=== PATIENT | female | born 1950 | race Caucasian/White ===

== ENCOUNTER → 2017-04-15 | Outpatient (CLI) | payer OTHER ==
[~2017-04-15] MED LIST: ASPEC325 PO; CRDCD240 PO; GLIM2TAB2 PO; HYDR25TA4 PO; ISOS30TA3 PO; METO100T14 PO; PRAV20TA PO; SERT-234 PO
[2017-04-15 12:12] LABS: BASO % 0.6 %; BASO ABS # 0.03 K/uL (0-0.2); COMPLETE YES; HEMATOCRIT 45.8 % (37-47); IG% 0.2 %; LYMPH % 24.3 %; LYMPH ABS # 1.31 K/uL (1.2-3.4); MEAN CELL VOLUME 88.6 fL (80-100); MEAN CORPUSCULAR HEMOGLOBIN 30.6 pg (25-34); MEAN CORPUSCULAR HGB CONC 34.5 g/dl (32-36); MEAN PLATELET VOLUME 8.8 fL (7.4-10.4); MONO % 10.6 %; NEUT % 61.3 %; PLATELET COUNT 195 K/uL (130-400); RED BLOOD COUNT 5.17 M/uL (4.2-5.4)
[2017-04-15 12:24] LABS: ALT/SGPT 67 U/L (12-78); BLOOD UREA NITROGEN 16 mg/dl (7-18); BUN/CREATININE RATIO 20.1 (10-20); CARBON DIOXIDE 28 mmol/L (21-32); CHLORIDE 103 mmol/L (98-107); CHOLESTEROL 154 mg/dl (0-200); CREATININE 0.81 mg/dl (0.60-1.20); GLUCOSE 150 mg/dl (70-99); POTASSIUM 4.3 mmol/L (3.5-5.1); SODIUM 140 mmol/L (136-145); TRIGLYCERIDES 267 mg/dl (0-150); VERY LOW DENSITY LIPOPROT CALC 53 mg/dl
[2017-04-15 12:27] LABS: ALB/GLOB RATIO 1.6 (0.9-2); ALKALINE PHOSPHATASE 74 U/L (45-117); AST/SGOT 33 U/L (15-37); CHOLESTEROL/HDL RATIO 3.2; HDL CHOLESTEROL 48 mg/dl; LDL CHOLESTEROL CALCULATED 53 mg/dl
[2017-04-15 12:46] LABS: ESTIMATED AVERAGE GLUCOSE 148 mg/dl; HA1C FLAG Normal (Normal)
[2017-04-15 12:48] LABS: CALCIUM 9.8 mg/dl (8.5-10.1)
== END | disposition home or self-care (01) ==
LOC: C.LABBFT 09:16
PROVIDERS: ATTEND Physician Assistant Medical
DX: E11.9 Type 2 diabetes mellitus without complications (principal); E78.00 Pure hypercholesterolemia, unspecified

== ENCOUNTER → 2017-05-22 | Outpatient (CLI) | payer OTHER | END | disposition home or self-care (01) | LOC: C.PATHSPEC 13:29 | PROVIDERS: ATTEND Plastic Surgery | DX: B07.9 Viral wart, unspecified (principal) ==

== ENCOUNTER → 2017-10-27 | Outpatient (CLI) | payer OTHER ==
[2017-10-27 17:41] LABS: HEMATOCRIT 41.8 % (37-47); MEAN CELL VOLUME 92.1 fL (80-100); MEAN CORPUSCULAR HEMOGLOBIN 30.6 pg (25-34); MEAN CORPUSCULAR HGB CONC 33.3 g/dl (32-36); MEAN PLATELET VOLUME 9.5 fL (7.4-10.4); PLATELET COUNT 183 K/uL (130-400); RED BLOOD COUNT 4.54 M/uL (4.2-5.4); WHITE BLOOD COUNT 5.84 K/uL (4.8-10.8)
[2017-10-27 17:56] LABS: ALT/SGPT 41 U/L (12-78); AST/SGOT 25 U/L (15-37); BLOOD UREA NITROGEN 30 mg/dl (7-18); BUN/CREATININE RATIO 30.8 (10-20); CALCIUM 9.6 mg/dl (8.5-10.1); CARBON DIOXIDE 28 mmol/L (21-32); CHLORIDE 104 mmol/L (98-107); CREATININE 0.97 mg/dl (0.60-1.20); GLUCOSE 113 mg/dl (70-99); POTASSIUM 3.4 mmol/L (3.5-5.1); SODIUM 140 mmol/L (136-145)
[2017-10-27 18:07] LABS: ALB/GLOB RATIO 1.3 (0.9-2); ALKALINE PHOSPHATASE 56 U/L (45-117); CHOLESTEROL 110 mg/dl (0-200); CHOLESTEROL/HDL RATIO 2.2; HDL CHOLESTEROL 49 mg/dl; LDL CHOLESTEROL CALCULATED 33 mg/dl; TRIGLYCERIDES 142 mg/dl (0-150); VERY LOW DENSITY LIPOPROT CALC 28 mg/dl
[2017-10-27 18:10] LABS: RATIO 12.4 mcg/mg (0-30.0)
[2017-10-28 07:27] LABS: ESTIMATED AVERAGE GLUCOSE 117 mg/dl; HA1C FLAG Normal (Normal)
== END | disposition home or self-care (01) ==
LOC: C.LABBFT 13:18
PROVIDERS: ATTEND Internal Medicine
DX: E11.29 Type 2 diabetes mellitus with other diabetic kidney complication (principal); E78.00 Pure hypercholesterolemia, unspecified

== ENCOUNTER 2017-11-16 06:02 | Emergency (ER) | payer OTHER ==
[~2017-11-16] VITALS: Ht 162.6 cm; Wt 76.8 kg
[2017-11-16 06:07] VITALS: TEMP 36.3; Ht 162.6 cm; Wt 76.8 kg
--- NOTE | 2017-11-16 06:26 | EMERGENCY ROOM VISIT NOTE ---
History Report prepared by Robyn: Aliyah Smiley Under the Supervision of: Dr. Vanesa Joshua D.O. First contact with patient: 06:09 Chief Complaint: BACK PAIN Stated Complaint: BACK PAIN History of Present Illness The patient is a 67 year old female who presents to the Emergency Room with complaints of worsening right-sided back pain beginning yesterday at 1500. The patient states that she was sitting in a chair yesterday when she stood up and felt the pain. She rates the pain at a 10/10. The patient states that the pain also radiates to her right leg. She denies having incontinence, paresthesias, and fevers. The patient also denies any trauma. The patient states that she is prescribed tramadol and that that did not help her back pain this time. She reports a history of degenerative disc disease. States pain typically shoots into the left leg when she has had similar episodes previously. She does not regularly follow with a production control specialist. Source of History: patient Onset: yesterday at 1500 Position: back (right-sided) Symptom Intensity: rated at a 10/10 Timing: worsening Associated Symptoms: No fevers Review of Systems See HPI for pertinent positives & negatives. A total of 10 systems reviewed and were otherwise negative. Past Medical & Surgical Medical Problems: (1) Asthma (2) Bleeding (3) Bronchitis (4) Degenerative disc disease (5) Diabetes (6) Heart attack (7) Heart disease (8) Herniated cervical disc (9) Hypertension (10) Ovarian cyst (11) Stomach problems Surgical Problems: (1) Hx of cholecystectomy Family History Cancer Diabetes mellitus Gallbladder disease Heart disease Hypertension Social History Smoking Status: Former Smoker Alcohol Use: occasionally Drug Use: none Marital Status: single Housing Status: lives alone Occupation Status: employed Current/Historical Medications Scheduled Aspirin (Aspirin *), 325 MG PO QAM Diltiazem Hcl Cd (Cardizem Cd *), 120 MG PO DAILY Glimepiride (Glimepiride), 1 TAB PO DAILY Hydrochlorothiazide (Hctz), 25 MG PO DAILY Isosorbide Mononitrate Ext Rel (Imdur Ext Rel), 30 MG PO QAM Lidocaine (Lidoderm Patch 5%), 1 PATCH TD DAILY Metoprolol Tartrate (Lopressor) (Lopressor), 100 MG PO BID Pravastatin (Pravachol ), 20 MG PO DAILY Sertraline (Zoloft), 100 MG PO DAILY Scheduled PRN Diazepam (Valium), 5 MG PO Q8 PRN for Pain Oxycodone/Acetaminophen 5MG/325MG (Percocet 5MG/325MG), 1-2 TABS PO Q4H PRN for Pain Allergies Coded Allergies: Codeine (Verified Allergy, Intermediate, GI ISSUES, 11/05/15) Physical Exam Vital Signs Date Time Temp Pulse Resp B/P (MAP) Pulse Ox O2 Delivery O2 Flow Rate FiO2 11/16/17 09:36 65 20 141/82 95 11/16/17 08:28 64 20 150/76 97 Room Air 11/16/17 07:03 62 20 147/61 99 Room Air 11/16/17 06:07 36.3 64 20 151/78 99 Room Air Physical Exam GENERAL: alert, uncomfortable appearing, laying left lateral Recumbent position , well nourished, no distress, non-toxic EYE EXAM: normal conjunctiva, PERRL and EOM's grossly intact LUNGS: Clear to auscultation. Normal chest wall mechanics HEART: no murmurs, S1 normal and S2 normal ABDOMEN: abdomen soft, non-tender, normo-active bowel sounds, no masses, no rebound or guarding. BACK: Back is symmetrical on inspection and there is no deformity, no midline tenderness, no CVA tenderness. No pain with palpation of lumbar spine, hips, or sacrum. SKIN: no rashes and no bruising UPPER EXTREMITIES: upper extremities are grossly normal. LOWER EXTREMITIES: No pitting edema. No pain with palpation. NEURO EXAM: Normal sensorium, cranial nerves II-XII grossly intact, normal speech, no gross weakness of arms, no gross weakness of legs. Medical Decision & Procedures ER Provider Diagnostic Interpretation: LUMBAR SPINE WITHOUT CLINICAL HISTORY: 67 years-old Female presenting with pain. TECHNIQUE: Multidetector CT of the lumbar spine was performed without the use of intravenous contrast. IV contrast: None. A dose lowering technique was used consistent with the principles of ALARA (as low as reasonably achievable). COMPARISON: Plain radiographs of the lumbar spine from 2010. CT DOSE (mGy.cm): The estimated cumulative dose is 1085.96 mGy.cm. FINDINGS: Finish Inspector topogram: Cholecystectomy clips noted. 7 mm of grade 1 anterolisthesis of L4 on L5, degenerative in etiology. No pars defect. Otherwise normal lumbar lordosis at the remaining levels. Vertebral bodies maintain normal height. Intervertebral disc height loss at L4-5 is mild with the remainder of intervertebral disc spaces preserved. No acute fracture or subluxation. Mild neural foraminal narrowing results from the anterolisthesis at L4-5. There is also resultant narrowing of the spinal canal. Mild facet arthropathy noted in the lower lumbar spine. Paraspinal soft tissues within normal limits apart from atherosclerosis. IMPRESSION: No acute osseous injury of the lumbar spine. Anterolisthesis of L4 on L5 with associated neural foraminal narrowing, degenerative in etiology. Electronically signed by: Jesus Billingsley M.D. 11/16/2017 7:58 AM Laboratory Results Test 11/16/17 08:00 Urine Color YELLOW Urine Appearance CLEAR (CLEAR) Urine pH 5.0 (4.5-7.5) Urine Specific Fenton 1.020 (1.000-1.030) Urine Protein NEG (NEG) Urine Glucose (UA) NEG (NEG) Urine Ketones 2+ (NEG) Urine Occult Blood NEG (NEG) Urine Nitrite NEG (NEG) Urine Bilirubin NEG (NEG) Urine Urobilinogen NEG (NEG) Urine Leukocyte Esterase NEG (NEG) Medications Administered Medications (Trade) Dose Ordered Sig/Mt Route Start Time Stop Time Status Last Admin Dose Admin Lidocaine (Lidoderm Patch 5%) 1 patch NOW STAT TD 11/16/17 06:28 11/16/17 06:32 DC 11/16/17 07:00 1 PATCH Diazepam (Valium Inj) 2.5 mg NOW STAT IV 11/16/17 06:28 11/16/17 06:32 DC 11/16/17 06:40 2.5 MG Ketorolac Tromethamine (Toradol Inj) 15 mg NOW STAT IV 11/16/17 06:28 11/16/17 06:32 DC 11/16/17 06:39 15 MG Oxycodone/ Acetaminophen (Percocet 5-325mg Tab) 1 tab NOW STAT PO 11/16/17 06:28 11/16/17 06:32 DC 11/16/17 07:00 1 TAB Fentanyl Citrate (Fentanyl Inj) 50 mcg NOW STAT IV 11/16/17 07:13 11/16/17 07:14 DC 11/16/17 07:26 50 MCG Cyclobenzaprine HCl (Flexeril Tab) 10 mg NOW STAT PO 11/16/17 08:09 11/16/17 08:10 DC 11/16/17 08:26 10 MG Oxycodone/ Acetaminophen (Percocet 5-325mg Tab) 1 tab NOW STAT PO 11/16/17 08:09 11/16/17 08:10 DC 11/16/17 08:26 1 TAB ED Course 0619: The patient was evaluated in room A4B. A complete history and physical exam was performed. 0628: Ordered Oxycodone/ Acetaminophen 1 tab PO, Toradol Inj 15 mg IV, Diazepam 2.5 mg IV, Lidocaine 1 patch TD. 0706: I reassessed the patient and she is still having some pain. 0810: Patient states pain had improved prior to CAT scan, now feels worse since returning from CAT scan and getting up to walk and give a urine specimen. Patient states she has had issues with her back since she was in her 20s. Her most recent imaging was performed in 2010 she has had prior MRI. Patient states she does not follow regularly with a back or production control specialist. Patient was concerned tonight due to the severity of pain and lack of trauma, although states she has had acute "twinges" in her back previously which has led to similar back pain only radiation to the left side in set of the right. 0902: Patient improved, pain still worse with movement and ambulation. No new or evolving symptoms to suggest or compression, discitis, epidural abscess or hematoma. Patient states episode similar to prior that she has had. Patient comfortable going home, her brother is driving her, she will follow up with her family doctor. Medical Decision Differential diagnosis: Etiologies such as musculoskeletal, disc herniation, fracture, aortic disease, metastatic disease, cord compression, discitis, infection, renal colic, gastrointestinal, acute exacerbation of chronic back pain, sciatica, cauda equina, as well as others were entertained. I do not suspect cauda equina, epidural abscess/hematoma, acute discitis, or acute nerve compression. Pt with long standing hx of back pain with intermittent acute exacerbations. Pt improved here and able to ambulate. No incontinence or saddle anesthesia. Discussed possible need for additional evaluation including specialist appt or MRI. Discussed with her sx to watch/ return for, use of meds and possible adr's, hydration, limited activity, she verbalized understanding and was agreeable with plan. Medication Reconcilliation Current Medication List: was personally reviewed by me Blood Pressure Screening Patient's blood pressure: Elevated blood pressure Blood pressure disposition: Elevated BP felt to be situational Impression Primary Impression: Low back pain Additional Impression: Lumbar radiculopathy, acute Scribe Attestation The scribe's documentation has been prepared under my direction and personally reviewed by me in its entirety. I confirm that the note above accurately reflects all work, treatment, procedures, and medical decision making performed by me. Departure Information Dispostion Home / Self-Care Prescriptions Lidocaine (Lidoderm Patch 5%) 1 Ea Tdsy 1 PATCH TD DAILY for Pain, #1 BOX Prov: Vanesa Joshua, DO 11/16/17 Diazepam (Valium) 5 Mg Tab 5 MG PO Q8 Y for Pain, #12 TAB Prov: Vanesa Joshua, DO 11/16/17 Oxycodone/Acetaminophen 5MG/325MG (PERCOCET 5MG/325MG) Tab 1-2 TABS PO Q4H Y for Pain, #15 TAB Prov: Vanesa Joshua, DO 11/16/17 Referrals Tomy Jaquez M.D. (PCP) Patient Instructions My [facility] Additional Instructions Please follow up with your family doctor as a precaution. You may take the medications as prescribed. Please do not take the muscle relaxer or stronger pain medication and drive his they may make you dizzy and drowsy. Please make sure you're drinking plenty of water. Please monitor for constipation as it is a frequent side effect of stronger pain medication. If you develop worsening pain, are unable to walk, develop numbness or tingling, are unable to control your bowel or bladder function, develop fevers, vomiting, or you've any other new concerns, please return the emergency room. If your pain is persistent or worsening, your family doctor may also refer you to a back or production control specialist for additional evaluation. Problem Qualifiers Primary Impression: Low back pain Chronicity: acute Back pain laterality: right Sciatica presence: with sciatica Sciatica laterality: sciatica of right side Qualified Codes: M54.41 - Lumbago with sciatica, right side
[2017-11-16] MEDS ORDERED: DIAZEPAM INJ 5 MG/ML 2 ML CARP IV STA (06:28)
[2017-11-16] MEDS ORDERED: LIDODERM (LIDOCAINE) PATCH 5% TD STA (06:28)
[2017-11-16] MEDS ORDERED: OXYCODONE/ACETAMINOPHEN 5-325 TAB PO STA ×2 (06:28→08:09)
[2017-11-16] MEDS ORDERED: KETOROLAC TROMETHAMINE 30 MG/ML VIAL IV STA (06:28)
[2017-11-16] MEDS ORDERED: FENTANYL CITRATE INJ 50 MCG/1 ML 2 ML VIAL IV STA (07:13)
--- NOTE | 2017-11-16 07:59 | DIAGNOSTIC IMAGING REPORT ---
LUMBAR SPINE WITHOUT CLINICAL HISTORY: 67 years-old Female presenting with pain. TECHNIQUE: Multidetector CT of the lumbar spine was performed without the use of intravenous contrast. IV contrast: None. A dose lowering technique was used consistent with the principles of ALARA (as low as reasonably achievable). COMPARISON: Plain radiographs of the lumbar spine from 2010. CT DOSE (mGy.cm): The estimated cumulative dose is 1085.96 mGy.cm. FINDINGS: Contact Agent topogram: Cholecystectomy clips noted. 7 mm of grade 1 anterolisthesis of L4 on L5, degenerative in etiology. No pars defect. Otherwise normal lumbar lordosis at the remaining levels. Vertebral bodies maintain normal height. Intervertebral disc height loss at L4-5 is mild with the remainder of intervertebral disc spaces preserved. No acute fracture or subluxation. Mild neural foraminal narrowing results from the anterolisthesis at L4-5. There is also resultant narrowing of the spinal canal. Mild facet arthropathy noted in the lower lumbar spine. Paraspinal soft tissues within normal limits apart from atherosclerosis. IMPRESSION: No acute osseous injury of the lumbar spine. Anterolisthesis of L4 on L5 with associated neural foraminal narrowing, degenerative in etiology. Electronically signed by: Jesus Billingsley M.D. 11/16/2017 7:58 AM Dictated Date/Time: 11/16/2017 7:55 AM
[2017-11-16] MEDS ORDERED: CYCLOBENZAPRINE HCL 10 MG TAB PO STA (08:09)
[2017-11-16] MEDS ORDERED: OXYC-57 PO (08:18)
[2017-11-16] MEDS ORDERED: NF656 TD (08:18)
[2017-11-16] MEDS ORDERED: DIAZ-165 PO (08:18)
[2017-11-16 08:43] LABS: URINE APPEARANCE CLEAR (CLEAR); URINE BILIRUBIN NEG (NEG); URINE COLOR YELLOW; URINE NITRITE NEG (NEG); UROBILINOGEN NEG (NEG)
[2017-11-16 08:50] LABS: MANUAL MICROSCOPIC REQUIRED? NO; REVIEW REQ? NO
[2017-11-16 09:36] VITALS: BP 141/82; PULSE 65; O2SAT 95
== END 2017-11-16 09:38 | disposition home or self-care (01) ==
LOC: EDBD 06:02 → C.EDA 06:03
DX: M54.5 Low back pain (principal); M54.16 Radiculopathy, lumbar region; E11.9 Type 2 diabetes mellitus without complications; I10 Essential (primary) hypertension; I51.9 Heart disease, unspecified; M50.20 Other cervical disc displacement, unspecified cervical region; N83.209 Unspecified ovarian cyst, unspecified side; Z87.19 Personal history of other diseases of the digestive system; Z87.891 Personal history of nicotine dependence; Z79.82 Long term (current) use of aspirin; Z79.899 Other long term (current) drug therapy; Z88.5 Allergy status to narcotic agent; Z80.9 Family history of malignant neoplasm, unspecified; Z83.3 Family history of diabetes mellitus; Z83.79 Family history of other diseases of the digestive system; Z82.49 Family history of ischemic heart disease and other diseases of the circulatory system

== ENCOUNTER 2018-02-18 05:33 | Inpatient (IN) | payer OTHER ==
[2018-01-29 11:34] VITALS: BMI 29.0
--- NOTE | 2018-01-29 12:20 | PAT Medication Instructions ---
Service Date Jan 29, 2018. Current Home Medication List Ascorbic Acid (Vitamin C), 500 MG PO QAM Aspirin (Aspirin), 325 MG PO QAM Clonidine Hcl (Catapres), 0.1 MG PO BID Diltiazem Hcl Coated Beads (Cartia Xt), 1 CAP PO QAM Gabapentin (Neurontin), 600 MG PO BID PRN for RN Glimepiride (Glimepiride), 1 TAB PO QAM Hydrochlorothiazide (Hctz), 25 MG PO QPM Isosorbide Mononitrate Ext Rel (Imdur Ext Rel), 30 MG PO QAM Losartan Potassium (Cozaar), 100 MG PO QPM Lutein (Lutein), 20 MG PO QAM Metoprolol Tartrate (Lopressor) (Lopressor), 100 MG PO BID Multiple Vitamins W/ Minerals (Centravites), 1 TAB PO BID Multivitamin (Multivitamin), 1 TAB PO QAM Nitroglycerin (Nitrostat), 0.4 MG UT PRN Pravastatin (Pravachol ), 40 MG PO QPM Sertraline (Zoloft), 100 MG PO QPM Medication Instructions For Your Scheduled Surgery -Contact your economics consultant for instructions for: Aspirin (Aspirin), 325 MG PO QAM -Continue as directed: Nitroglycerin (Nitrostat), 0.4 MG UT PRN - Hold the following medications the night before surgery: Hydrochlorothiazide (Hctz), 25 MG PO QPM Losartan Potassium (Cozaar), 100 MG PO QPM - Hold the following medications the morning of surgery: Ascorbic Acid (Vitamin C), 500 MG PO QAM Glimepiride (Glimepiride), 1 TAB PO QAM Lutein (Lutein), 20 MG PO QAM Multiple Vitamins W/ Minerals (Centravites), 1 TAB PO BID Multivitamin (Multivitamin), 1 TAB PO QAM - Take the following medications the morning of surgery with a sip of water: Clonidine Hcl (Catapres), 0.1 MG PO BID Diltiazem Hcl Coated Beads (Cartia Xt), 1 CAP PO QAM Gabapentin (Neurontin), 600 MG PO BID PRN for RN (if needed) Isosorbide Mononitrate Ext Rel (Imdur Ext Rel), 30 MG PO QAM Metoprolol Tartrate (Lopressor) (Lopressor), 100 MG PO BID - Take the following medications as scheduled the night before surgery: Clonidine Hcl (Catapres), 0.1 MG PO BID Gabapentin (Neurontin), 600 MG PO BID PRN for RN (if needed) Metoprolol Tartrate (Lopressor) (Lopressor), 100 MG PO BID Multiple Vitamins W/ Minerals (Centravites), 1 TAB PO BID Pravastatin (Pravachol ), 40 MG PO QPM Sertraline (Zoloft), 100 MG PO QPM If you have any questions please call us at [phone] or [phone] or [phone]
--- NOTE | 2018-01-29 13:06 | DIAGNOSTIC IMAGING REPORT ---
CHEST 2 VIEWS ROUTINE CLINICAL HISTORY: PAT preoperative evaluation COMPARISON STUDY: 11/05/2015 FINDINGS: The bones soft tissues and hemidiaphragms are normal. The cardiomediastinal silhouette is normal. The lungs are clear. The pulmonary vasculature is normal. IMPRESSION: Negative chest. The above report was generated using voice recognition software. It may contain grammatical, syntax or spelling errors. Electronically signed by: Eric Carr M.D. 01/29/2018 1:04 PM Dictated Date/Time: 01/29/2018 1:04 PM
[2018-01-29 13:24] LABS: BASO % 0.3 %; BASO ABS # 0.02 K/uL (0-0.2); EOS % 0.7 %; EOS ABS # 0.04 K/uL (0-0.5); HEMATOCRIT 44.2 % (37-47); HEMOGLOBIN 15.5 g/dL (12.0-16.0); IG# 0.01 K/uL (0.00-0.02); LYMPH % 18.6 %; LYMPH ABS # 1.09 K/uL (1.2-3.4); MEAN CELL VOLUME 90.8 fL (80-100); MEAN CORPUSCULAR HEMOGLOBIN 31.8 pg (25-34); MEAN CORPUSCULAR HGB CONC 35.1 g/dl (32-36); MEAN PLATELET VOLUME 8.8 fL (7.4-10.4); MONO % 8.4 %; MONO ABS # 0.49 K/uL (0.11-0.59); NEUT % 71.8 %; PLATELET COUNT 182 K/uL (130-400); RED CELL DISTRIBUTION WIDTH CV 12.9 % (11.5-14.5); RED CELL DISTRIBUTION WIDTH SD 42.7 fL (36.4-46.3); WHITE BLOOD COUNT 5.85 K/uL (4.8-10.8)
[2018-01-29 13:34] LABS: CREATININE 0.83 mg/dl (0.60-1.20); POTASSIUM 4.1 mmol/L (3.5-5.1)
[~2018-02-18] VITALS: Ht 162.6 cm; Wt 75.0 kg
[2018-02-18] VITALS (9 sets, daily range): BP systolic 102–145; BP diastolic 61–82; PULSE 55–68; TEMP 36.3–36.6; O2SAT 93–97; BMI 28.0
[~2018-02-18 05:33] MED LIST changes: +ASCO1CAP3 PO; -ASPEC325 PO; +ASPI325T45 PO; -CRDCD240 PO; +CTP/1 PO; +DILT240C48 PO; +GABA-113 PO; +LOSA1TAB38 PO; +LUTE20CA PO; +MULT-305 PO; +MULT-506 PO; +NTRGSL/4 UT
[2018-02-18] MEDS ORDERED: SCOPOLAMINE 1.5 MG TDSY TD SCH (06:00)
[2018-02-18] MEDS ORDERED: CEFAZOLIN 1000MG IV PUSH 7.5 ML IV SCH (06:00)
[2018-02-18] MEDS ORDERED: LACTATED RINGER'S 1000ML 1,000 ML IV SCH (06:00)
[2018-02-18] MEDS ORDERED: FENTANYL CITRATE INJ 50 MCG/1 ML 2 ML VIAL ONE ×2 (06:46→08:10)
[2018-02-18] MEDS ORDERED: MIDAZOLAM HCL 1 MG/ML 2ML VIAL ONE (06:46)
[2018-02-18] MEDS ORDERED: BUPIVACAINE/EPINEPHRINE 0.5% MPF 1:200,000 30 ML VIAL ONE (07:02)
[2018-02-18] MEDS ORDERED: CLINDAMYCIN PHOS 150 MG/ML 2 ML VIAL ONE ×2 (07:38)
--- NOTE | 2018-02-18 07:38 | History & Physical Bridge Note ---
H&P Re-Evaluation Bridge Note: I have examined the patient, reviewed the History & Physical and in the interval since the performance of the History & Physical I have noted the following changes of clinical significance: No changes noted
--- NOTE | 2018-02-18 07:39 | History and Physical ---
History & Physical Date Feb 18, 2018. Chief Complaint Back and leg pain History of Present Illness The patient is a 67 year old female with complaints of back and leg pain Past Medical/Surgical History Medical Problems: (1) Asthma (2) Bleeding (3) Bronchitis (4) Degenerative disc disease (5) Diabetes (6) Heart attack (7) Heart disease (8) Herniated cervical disc (9) Hypertension (10) Ovarian cyst (11) Stomach problems Surgical Problems: (1) Hx of cholecystectomy Allergies Coded Allergies: Codeine (Verified Allergy, Intermediate, GI ISSUES, 02/18/18) ANDRE Inhibitors (Verified Allergy, Unknown, COUGH, 02/18/18) Bacitracin (Verified Allergy, Unknown, EYE OINT ITCHY EYES, 02/18/18) Polymyxin B (Verified Allergy, Unknown, EYE OINT ITCHY EYES, 02/18/18) Home Medications Scheduled Ascorbic Acid (Vitamin C), 500 MG PO QAM Aspirin (Aspirin), 325 MG PO QAM Clonidine Hcl (Catapres), 0.1 MG PO BID Diltiazem Hcl Coated Beads (Cartia Xt), 1 CAP PO QAM Glimepiride (Glimepiride), 1 TAB PO QAM Hydrochlorothiazide (Hctz), 25 MG PO QPM Isosorbide Mononitrate Ext Rel (Imdur Ext Rel), 30 MG PO QAM Losartan Potassium (Cozaar), 100 MG PO QPM Lutein (Lutein), 20 MG PO QAM Metoprolol Tartrate (Lopressor) (Lopressor), 100 MG PO BID Multiple Vitamins W/ Minerals (Centravites), 1 TAB PO BID Multivitamin (Multivitamin), 1 TAB PO QAM Nitroglycerin (Nitrostat), 0.4 MG UT PRN Pravastatin (Pravachol ), 40 MG PO QPM Sertraline (Zoloft), 100 MG PO QPM Scheduled PRN Gabapentin (Neurontin), 600 MG PO BID PRN for RN Physical Examination Skin: warm/dry, no rash Eyes: normal inspection, EOMI, sclerae normal ENT: normal ENT inspection, pharynx normal Head: normocephalic, atraumatic Neck: supple, no adenopathy, trachea midline Respiratory/Chest: lungs clear, normal breath sounds, no respiratory distress Cardiovascular: regular rate, rhythm, no edema, no murmur Abdomen / GI: normal bowel sounds, non tender Back: normal inspection Extremities: normal inspection, normal range of motion Neurologic/Psych: no motor/sensory deficits, alert, normal reflexes, oriented x 3 Diagnosis Lumbar spinal stenosis Plan of Treatment L4-L5 decompression and fusion
[2018-02-18] MEDS: CHECK SCOPOLAMINE PATCH PLACEMENT SCH ×2 (08:00→15:37)
[2018-02-18] MEDS ORDERED: HYDROmorphone INJ 2 MG/ML SYR/VIAL ONE (08:10)
[2018-02-18] MEDS ORDERED: PROMETHAZINE HCL INJ 6.25 MG in SODIUM CHLORIDE 0.9% 50ML 50 ML IV PRN (08:30)
[2018-02-18] MEDS ORDERED: EpHEDrine SULFATE INJ 50 MG/ML AMP IV PRN (08:30)
[2018-02-18] MEDS ORDERED: ONDANSETRON INJ 2 MG/ML 2 ML VIAL IV PRN ×2 (08:30→09:30)
[2018-02-18] MEDS ORDERED: FENTANYL CITRATE INJ 50 MCG/1 ML 2 ML VIAL IV PRN (08:30)
[2018-02-18] MEDS ORDERED: ATROPINE SULFATE 0.1 MG/ML 5ML SYR IV PRN (08:30)
[2018-02-18] MEDS ORDERED: DEXAMETHASONE SOD INJ 4 MG/ML VIAL ONE (08:36)
[2018-02-18] MEDS ORDERED: PROPOFOL IV EMULSION 10 MG/ML 20 ML VIAL IV ONE (08:36)
[2018-02-18] MEDS ORDERED: RANITIDINE HCL 25 MG/ML INJ ONE (08:36)
[2018-02-18] MEDS ORDERED: EpHEDrine SULFATE 50MG/5ML SYR ONE (08:36)
[2018-02-18] MEDS ORDERED: ONDANSETRON INJ 2 MG/ML 2 ML VIAL ONE (08:36)
[2018-02-18] MEDS ORDERED: LIDOCAINE HCL 2% 2 ML VIAL (20MG/ML) ONE (08:36)
[2018-02-18] MEDS ORDERED: FLOSEAL HEMOSTATIC MATRIX 10ML TOP ONE (09:17)
--- NOTE | 2018-02-18 09:26 | [facility] Operative Report ---
Operative Report Operative Date Feb 18, 2018. Pre-Operative Diagnosis Lumbar spinal stenosis Post-Operative Diagnosis Same Procedure(s) Performed 1. Decompression L3-4 L4-5 #2 posterior spinal fusion L4-5. #3 placed posterior instrumentation L4-5. #4 interbody fusion L4-5. #5 placed a peek cage 11 x 22 mm at L4-5. #6 placement of locally harvested morselized autograft in the posterior lateral gutters. #7 placement of infuse collagen sponge breast graft the posterior gutters was doing up in the interbody space. Surgeon Dr. Arnie Ashley Weaving Machine Operator Surgeon(s) Mallory Enrique PA-C Estimated Blood Loss 100 cc Findings Severe spinal stenosis with spondylolisthesis Anesthesia Type General Description of Procedure Patient was met with preoperatively case discussed all questions addressed. After informed consent obtained patient was taken to the operative suite underwent intubation and placed in a prone position on the Samuel table on top of the lucent frame. All bony prominences were well-padded I suspected to ensure no external pressure placed upon the. This point the lumbar spine was prepped and draped in normal sterile fashion. Sharp dissection with the assistance of Bovie cautery was performed down to in exposing the lamina and transverse processes of L4-5 bilaterally from calcification complete laminectomy of L4 partial laminectomy of L3 was performed addressing severe lateral recess and foraminal stenosis. Pedicle screws were then placed in L4 and L5 bilaterally with the assistance of fluoroscopy an appropriate size rand placed. Through a transforaminal approach on the right a complete discectomy of L4-5 was performed endplates created to subcortical bleeding bone and a 11 x 22 mm peek cage filled with osteitic bone graft apposition. The rods then compressed and locked in final position bilaterally. The transverse processes of L4 and L5 burred to subcortical bleeding bone. Infuse collagen sponge mesh graft locally harvested morselized s Autograft was placed in the posterior lateral gutters.. 15 round KATHLEEN drain inserted. Incision was then closed with 1 Vicryl in the fascia 2-0 Vicryl subcutaneously 4-0 Monocryl for fashion closure Steri-Strips sterile dressings placed patient was getting to PACU stable condition. Please note Mallory Leyva was present throughout the entire procedure involved in patient positioning complex portions of the surgery and fashion closure. I attest to the content of the Intraoperative Record and any orders documented therein. Any exceptions are noted below.
[2018-02-18] MEDS ORDERED: SODIUM CHLORIDE 0.9% 1000ML 1,000 ML IV SCH (09:27)
[2018-02-18] MEDS ORDERED: hydrOXYzine HCL 25 MG TAB PO PRN (09:30)
[2018-02-18] MEDS ORDERED: LORAZEPAM INJ 0.5 MG in SYRINGE 0 ML IV PRN (09:30)
[2018-02-18] MEDS ORDERED: ALUMINUM/MAGNESIUM SUSP 30 ML UDC PO PRN (09:30)
[2018-02-18] MEDS ORDERED: ACETAMINOPHEN IV 100 ML IV PRN (09:30)
[2018-02-18] MEDS ORDERED: DO NOT ADMINISTER FLU VACCINE PRN (09:30)
[2018-02-18] MEDS ORDERED: LORAZEPAM 0.5 MG TAB PO PRN (09:30)
[2018-02-18] MEDS ORDERED: NITROGLYCERIN 0.4 MG SL PER TAB CHARGE UT PRN (09:30)
[2018-02-18] MEDS ORDERED: FAMOTIDINE 20 MG TAB PO PRN (09:30)
[2018-02-18] MEDS ORDERED: BISACODYL 10 MG SUPP PR PRN (09:30)
[2018-02-18] MEDS ORDERED: NALOXONE HCL 0.4 MG/1 ML VIAL/CARP IV PRN ×2 (09:30)
[2018-02-18] MEDS ORDERED: ACETAMINOPHEN 500 MG TAB PO PRN (09:30)
[2018-02-18] MEDS ORDERED: SOD PHOSPHATE/SOD BIPHOSPHATE ENEMA 132 ML BTL PR PRN (09:30)
[2018-02-18] MEDS ORDERED: GABAPENTIN 600 MG TAB PO PRN (09:30)
[2018-02-18] MEDS ORDERED: METOCLOPRAMIDE HCL INJ 5 MG/ML 2 ML VIAL IV PRN (09:30)
[2018-02-18] MEDS ORDERED: DO NOT ADMINISTER PNEUMOCOCCAL VACCINE PRN (09:30)
[2018-02-18] MEDS ORDERED: PROMETHAZINE HCL INJ 12.5 MG in SODIUM CHLORIDE 0.9% 50ML 50 ML IV PRN (09:30)
[2018-02-18] MEDS ORDERED: MAGNESIUM HYDROXIDE SUSP 30 ML UDC PO PRN (09:30)
--- NOTE | 2018-02-18 09:32 | DIAGNOSTIC IMAGING REPORT ---
LUMBAR SPINE 2 OR 3 VIEW CLINICAL HISTORY: 67 years-old Female presenting with L4-5 DECOMPRESSION/FUSION. TECHNIQUE: 2 fluoroscopic spot image(s) obtained as part of an intraoperative procedure. COMPARISON: MR from 12/03/2017. FINDINGS/IMPRESSION: There has been interval bilateral transpedicular screw and rand fixation of L4-5 with an interbody spacer in place. Laminectomy defect of L4. Normal anatomic alignment. Please see surgical report for further details. Fluoroscopy dosage (mGy): 13.52. Fluoroscopy time: 14.6 seconds. Number of fluoroscopic spot images: 2. Electronically signed by: Jesus Billingsley M.D. 02/18/2018 9:31 AM Dictated Date/Time: 02/18/2018 9:30 AM
[2018-02-18] MEDS: HYDROmorphone HCL 0.5MG/ML 50 ML CASSETTE IV PRN ×4 (09:59→22:47)
--- NOTE | 2018-02-18 10:20 | Anesthesiology Progress Note ---
Anesthesia Post Op Note Date & Time Feb 18, 2018 at 10:19 Vital Signs Pain Intensity: 2 Vital Signs Past 12 Hours Date Time Temp Pulse Resp B/P (MAP) Pulse Ox O2 Delivery O2 Flow Rate FiO2 02/18/18 10:11 55 15 129/66 98 02/18/18 10:11 36.5 56 15 02/18/18 10:06 57 14 129/66 96 02/18/18 10:06 57 14 02/18/18 10:01 57 16 02/18/18 10:01 58 16 124/72 100 02/18/18 09:56 58 20 02/18/18 09:56 58 20 122/67 99 02/18/18 09:51 59 19 122/66 99 02/18/18 09:51 59 19 02/18/18 09:46 59 17 02/18/18 09:46 59 17 119/60 99 02/18/18 09:42 122/61 02/18/18 09:41 60 14 02/18/18 09:41 61 14 100 02/18/18 09:36 36.4 76 16 120/76 98 Oxymask 7 02/18/18 05:49 36.5 55 20 145/67 96 Room Air Notes Mental Status: alert / awake / arousable, participated in evaluation Pt Amnestic to Procedure: Yes Nausea / Vomiting: adequately controlled Pain: adequately controlled Airway Patency, RR, SpO2: stable & adequate BP & HR: stable & adequate Hydration State: stable & adequate Anesthetic Complications: no major complications apparent Patient has a history of severe PONV requiring admission for treatment with previous outpatient procedures. Today she had no PONV with extensive iv prophylaxis and scopolamine patch.
[2018-02-18] MEDS: SODIUM CHLORIDE 0.9% 1000ML 1,000 ML IV SCH ×3 (11:08→23:24)
[2018-02-18] MEDS: CEFAZOLIN IV 2,000 MG in SYRINGE 0 ML IV SCH ×2 (14:10→21:38)
[2018-02-18] MEDS: LOSARTAN POTASSIUM 50 MG TAB PO SCH (20:38)
[2018-02-18] MEDS: PRAVASTATIN SOD 20 MG TAB PO SCH (20:38)
[2018-02-18] MEDS: CLONIDINE HCL 0.1 MG TAB PO SCH (20:38)
[2018-02-18] MEDS: METOPROLOL TARTRATE 100 MG TAB PO SCH (20:39)
[2018-02-18] MEDS: HYDROCHLOROTHIAZIDE 25 MG TAB PO SCH (20:39)
[2018-02-18] MEDS: SERTRALINE HCL 100 MG TAB PO SCH (20:39)
[2018-02-18] MEDS: DOCUSATE SODIUM/SENNA 50/8.6MG TAB PO SCH (20:40)
[2018-02-19 03:42] VITALS: BP 123/69; PULSE 65; TEMP 36.4; O2SAT 97
[2018-02-19] MEDS ORDERED: HYDROmorphone INJ 0.5 MG/0.5 ML SYR IV PRN (06:00)
[2018-02-19] MEDS ORDERED: NURSING VERBAL MED ORDER ONE ×2 (06:00→11:15)
[2018-02-19] MEDS ORDERED: DC PCA SCH (06:00)
[2018-02-19 06:54] LABS: BASO % 0.1 %; BASO ABS # 0.01 K/uL (0-0.2); HEMATOCRIT 34.8 % (37-47); HEMOGLOBIN 12.1 g/dL (12.0-16.0); IG# 0.03 K/uL (0.00-0.02); LYMPH % 6.6 %; LYMPH ABS # 0.71 K/uL (1.2-3.4); MEAN CELL VOLUME 90.2 fL (80-100); MEAN CORPUSCULAR HEMOGLOBIN 31.3 pg (25-34); MEAN CORPUSCULAR HGB CONC 34.8 g/dl (32-36); MEAN PLATELET VOLUME 8.8 fL (7.4-10.4); MONO % 6.7 %; MONO ABS # 0.72 K/uL (0.11-0.59); NEUT % 86.3 %; NEUT ABS # 9.29 K/uL (1.4-6.5); PLATELET COUNT 153 K/uL (130-400); RED CELL DISTRIBUTION WIDTH SD 42.1 fL (36.4-46.3); WHITE BLOOD COUNT 10.76 K/uL (4.8-10.8)
[2018-02-19 07:23] LABS: CALCIUM 8.4 mg/dl (8.5-10.1); CREATININE 0.82 mg/dl (0.60-1.20); POTASSIUM 4.1 mmol/L (3.5-5.1)
[2018-02-19 07:52] VITALS: BP 111/73; PULSE 59; TEMP 36.5; O2SAT 96
[2018-02-19] MEDS: METOPROLOL TARTRATE 100 MG TAB PO SCH ×2 (08:43→21:00)
[2018-02-19] MEDS: CLONIDINE HCL 0.1 MG TAB PO SCH ×2 (08:44→21:11)
[2018-02-19] MEDS: ASPIRIN 325 MG ECTAB PO SCH (08:44)
[2018-02-19] MEDS: GLIMEPIRIDE 2 MG TAB PO SCH (08:44)
[2018-02-19] MEDS: ISOSORBIDE MONONITRATE 30 MG TABCR PO SCH (08:45)
[2018-02-19] MEDS: DILTIAZEM HCL 240 MG CAPCR PO SCH (08:45)
[2018-02-19 13:53] VITALS: Ht 162.6 cm; Wt 75.0 kg
[2018-02-19] MEDS: OXYCODONE HCL IR 5 MG TAB (IMMEDIATE RELEASE) PO PRN ×2 (13:54→21:11)
--- NOTE | 2018-02-19 14:04 | Progress Note ---
Progress Note Date of Service Feb 19, 2018. Progress Note Patient's back pain is controlled leg pain markedly improved. On exam she is sitting up in bed has good strength to testing. She is comfortable. Assessment status post lumbar decompression fusion. Plan at this time will continue physical therapy monitor for KATHLEEN output and hopefully discharge home tomorrow.
[2018-02-19] MEDS ORDERED: RXC5 PO (14:05)
--- NOTE | 2018-02-19 14:06 | Discharge Instructions ---
Discharge Instructions Date of Service Feb 19, 2018. Admission Reason for Admission: Spinal Stenosis Discharge Discharge Diagnosis / Problem: lumbar stenosis Discharge Goals Goal(s): Improve function Activity Recommendations Activity Limitations: per Instructions/Follow-up section . Instructions / Follow-Up Instructions / Follow-Up ACTIVITY RECOMMENDATIONS: SELF CARE INSTRUCTIONS AFTER THORACIC/LUMBAR FUSIONS 1. You may walk to your tolerance. It is good exercise for your legs and back. Expect some back and intermittent leg aches and pains. 2. You may perform "counter-top" level activities (make a sandwich, tate with a project, etc.). 3. No bending or lifting of more than 10 pounds or back twisting of any nature (roll like a log when turning in bed). 4. You may ride in a car for 20-30 minutes at a time. No driving until after your first visit with your doctor. 5. Frequent changes of position and restricting sitting to 30 minutes at a time will help limit the amount of back spasms and stiffness you may experience. 6. You may discontinue the use of ambulatory aids (cane, crutches, etc.) once your strength and confidence allow. 7. You may hogshead inspector the shower and let water strike your incision when you arrive home at least once daily. Do not take a tub bath, sit in a hot tub or go into a swimming pool until after your first recheck in the office. SPECIAL CARE INSTRUCTIONS: VERY IMPORTANT TO READ AND REVIEW A. Your surgical incision has been closed with a cosmetic suture under the skin that will dissolve in about 6 weeks. In 14 days, you can use a pair of clean scissors and cut the suture that is left outside of the skin at the ends of your incision. 1. The small skin tapes can be removed 7 days after surgery if they have not fallen off by that point. 2. You may keep the wound open to air as much as possible to promote healing after post-op day number 5 unless told otherwise by your doctor. 3. If you think the wound looks like it is becoming infected (redness or worsening drainage) and/or you are experiencing fever, chill or worsening back pain and muscle spasms, contact the office so that we may evaluate you as soon as possible. B. Complications are uncommon, but please contact us if you have any signs or symptoms of: 1. wound infection (fever higher than 102.5 degrees F, redness, separation of wound, drainage, or increasing pain from the incision) 2. blood clots in legs (pain, swelling, redness and warmth in legs) 3. urinary tract infection (fever higher than 102.5 degrees F, burning upon urination or increased frequency of urination) 4. nerve problems (inability to walk on your toes or heels, numbness, loss of bowel or bladder control) 5. any other symptoms that concern you C. Please call the office at if you have any concerns or questions about your operation or recovery. D. No smoking! Smoking drastically decreases the chance of a solid fusion. E. Do not take any anti-inflammatory medications (Indocin, Advil, Motrin, Aspirin, Naprosyn, etc.) as these may inhibit the chance of a solid fusion. Tylenol is okay to take for pain. MANAGING PAIN AFTER SPINAL SURGERY 1. Narcotic medication is intended for short-term use and will be provided for surgical pain. Surgical pain usually lasts for a period of 4-6 weeks. Narcotic medication includes Percocet, Vicodin, Darvocet, Tylenol #3 or Lortab. 2. Longer-term pain is more appropriately treated with non-narcotic medication such as Tylenol ES. 3. Muscle spasm is not appropriately treated with narcotics. Muscle relaxers such as Soma, Flexeril or Skelaxin can be used along with Tylenol ES. 4. Remember that we all live with some "aches and pains". This is not unusual or uncommon after an injury or as we get older. a. Back pain is expected and may include muscle spasms for 4 to 6 weeks after surgery. The pain should gradually improve. If the pain worsens for no apparent reason, please contact the office. b. Intermittent leg pain may also be experienced and should not be concerned about unless it worsens for no apparent reason. If so, please contact the office. 5. We will provide appropriate medication within the normal guidelines of their prescribed use. We will also be very cautious and aware of potential abuse and extended duration of patients' medication needs. a. Pain medications are for your comfort and to assist with sleep and rest so that the tissue can heal. They are not provided in order to return to normal activity and should not be used through the day. To do so or worsening pain at night can result from ongoing tissue damage and development of tolerance to the prescribed medicine. 6. Please allow 2-3 days to process refills. Prescriptions will not be mailed but must be picked up at the office. FOLLOW UP VISIT: Keep your scheduled follow-up appointment. Any questions, please call the office at . Current Hospital Diet Patient's current hospital diet: Regular Diet Discharge Diet Recommended Diet: Regular Diet Procedures Procedures Performed: 1. Decompression L3-4 L4-5 #2 posterior spinal fusion L4-5. #3 placed posterior instrumentation L4-5. #4 interbody fusion L4-5. #5 placed a peek cage 11 x 22 mm at L4-5. #6 placement of locally harvested morselized autograft in the posterior lateral gutters. #7 placement of infuse collagen sponge breast graft the posterior gutters was doing up in the interbody space. Pending Studies Studies pending at discharge: no Medical Emergencies . Who to Call and When: Medical Emergencies: If at any time you feel your situation is an emergency, please call 911 immediately. . Non-Emergent Contact Non-Emergency issues call your: Primary Care Provider . "Provider Documentation" section prepared by Arnie Ashley. .
[2018-02-19 15:09] VITALS: BP 114/63; PULSE 59; TEMP 36.6; O2SAT 96
[2018-02-19 21:05] VITALS: BP 111/73; PULSE 56
[2018-02-19] MEDS: HYDROCHLOROTHIAZIDE 25 MG TAB PO SCH (21:11)
[2018-02-19] MEDS: PRAVASTATIN SOD 20 MG TAB PO SCH (21:12)
[2018-02-19] MEDS: DOCUSATE SODIUM/SENNA 50/8.6MG TAB PO SCH (21:13)
[2018-02-19] MEDS: [UNRECOGNIZED DRUG - OTHER] PO SCH (21:13)
[2018-02-19] MEDS: SERTRALINE HCL 100 MG TAB PO SCH (21:13)
[2018-02-19] MEDS: LOSARTAN POTASSIUM 50 MG TAB PO SCH (21:13)
[2018-02-19 22:56] VITALS: BP 108/70; PULSE 54; TEMP 36.5; O2SAT 96
[2018-02-20] MEDS: POLYETHYLENE (MIRALAX) 17 GM PACK PO SCH ×2 (05:59→11:33)
[2018-02-20 06:24] VITALS: BP 119/75; PULSE 47; TEMP 36.4; O2SAT 96
[2018-02-20 07:35] VITALS: PULSE 56
[2018-02-20] MEDS: [UNRECOGNIZED DRUG - OTHER] PO SCH (07:36)
[2018-02-20] MEDS: DILTIAZEM HCL 240 MG CAPCR PO SCH (07:38)
[2018-02-20] MEDS: GLIMEPIRIDE 2 MG TAB PO SCH (07:38)
[2018-02-20] MEDS: METOPROLOL TARTRATE 100 MG TAB PO SCH (07:40)
[2018-02-20] MEDS: ASPIRIN 325 MG ECTAB PO SCH (07:40)
[2018-02-20] MEDS: CLONIDINE HCL 0.1 MG TAB PO SCH (07:40)
[2018-02-20] MEDS: ISOSORBIDE MONONITRATE 30 MG TABCR PO SCH (07:40)
[2018-02-20] MEDS: OXYCODONE HCL IR 5 MG TAB (IMMEDIATE RELEASE) PO PRN ×2 (07:44→12:42)
[2018-02-20 11:02] VITALS: BP 119/75; PULSE 56; TEMP 36.4; O2SAT 96
--- NOTE | 2018-02-20 11:34 | Discharge Summary ---
Orthopedic Discharge Summary Admission Date/Reason Feb 18, 2018 at 07:30 Spinal Stenosis. Discharge Date/Disposition Feb 20, 2018 Home Diagnosis Principal Diagnosis: Lumbar spinal stenosis Admission Physical Exam As per Admitting History & Physical. Hospital Course Patient underwent lumbar decompression and fusion tolerated this well was taken to the orthopedic floor postoperatively. Postop day #1 she was up and amatory progressed appropriately through postop day #2. KATHLEEN drain decreasing appropriately. Subsequently she was discharged home. Discharge orders and instructions can be found on the chart for further review. Discharge Instructions Please refer to the electronic Patient Visit Report (Discharge Instructions) for additional information.
== END 2018-02-20 13:40 | disposition home or self-care (01) | DRG 455 ==
LOC: C.ACU 05:33 → C.MSW 07:30 → ENRESERV 10:00
PROVIDERS: ADMIT Orthopaedic Surgery Orthopaedic Surgery of the Spine; ATTEND Orthopaedic Surgery Orthopaedic Surgery of the Spine
PROC: 0SG0071 Fusion of Lumbar Vertebral Joint with Autologous Tissue Substitute, Posterior Approach, Posterior Column, Open Approach (ICD-10-PCS; principal; 2018-02-18 07:45)
PROC: 01NB0ZZ Release Lumbar Nerve, Open Approach (ICD-10-PCS; principal; 2018-02-18 07:45)
PROC: 0ST20ZZ Resection of Lumbar Vertebral Disc, Open Approach (ICD-10-PCS; principal; 2018-02-18 07:45)
PROC: 0SG00AJ Fusion of Lumbar Vertebral Joint with Interbody Fusion Device, Posterior Approach, Anterior Column, Open Approach (ICD-10-PCS; principal; 2018-02-18 07:45)
DX: M48.061 Spinal stenosis, lumbar region without neurogenic claudication (principal); J45.909 Unspecified asthma, uncomplicated; E11.9 Type 2 diabetes mellitus without complications; I25.2 Old myocardial infarction; I11.9 Hypertensive heart disease without heart failure; Z79.899 Other long term (current) drug therapy; Z79.84 Long term (current) use of oral hypoglycemic drugs; Z79.82 Long term (current) use of aspirin; Z88.5 Allergy status to narcotic agent; Z88.8 Allergy status to other drugs, medicaments and biological substances; Z88.3 Allergy status to other anti-infective agents; Z88.1 Allergy status to other antibiotic agents

== ENCOUNTER → 2018-06-26 | Outpatient (CLI) | payer OTHER ==
[~2018-06-26] MED LIST changes: +ASPECOTC PO; -ASPI325T45 PO; +RXC5 PO
[2018-06-26 12:39] LABS: ALBUMIN 4.1 gm/dl (3.4-5.0); ALKALINE PHOSPHATASE 75 U/L (45-117); ALT/SGPT 33 U/L (12-78); AST/SGOT 22 U/L (15-37); BLOOD UREA NITROGEN 25 mg/dl (7-18); CALCIUM 9.6 mg/dl (8.5-10.1); CARBON DIOXIDE 29 mmol/L (21-32); CHOLESTEROL 122 mg/dl (0-200); CREATININE 0.98 mg/dl (0.60-1.20); GLUCOSE 107 mg/dl (70-99); LDL CHOLESTEROL CALCULATED 42 mg/dl; POTASSIUM 3.7 mmol/L (3.5-5.1); SODIUM 139 mmol/L (136-145)
[2018-06-26 12:50] LABS: HEMOGLOBIN A1C 5.6 % (4.5-5.6)
== END | disposition home or self-care (01) ==
LOC: C.LABBFT 09:10
PROVIDERS: ATTEND Internal Medicine
DX: Z00.00 Encounter for general adult medical examination without abnormal findings (principal); E11.9 Type 2 diabetes mellitus without complications; E78.00 Pure hypercholesterolemia, unspecified; I10 Essential (primary) hypertension